=== PATIENT | female | born 1985 | race Caucasian/White ===

== ENCOUNTER → 2021-08-04 | Outpatient (CLI) | payer OTHER | LOC: ORTHO 13:53 | PROVIDERS: ATTEND Orthopaedic Surgery | DX: S83.241A Other tear of medial meniscus, current injury, right knee, initial encounter (principal); X58.XXXA Exposure to other specified factors, initial encounter | CPT/HCPCS: 99203 ==

== ENCOUNTER 2021-08-10 05:33 | Outpatient (CLI) | payer OTHER ==
[~2021-08-10] VITALS: Ht 154.9 cm; Wt 81.0 kg
[2021-08-12] MEDS ORDERED: GABA-486 PO (13:41)
[2021-08-12] MEDS ORDERED: CYAN100088 PO (13:41)
[2021-08-12] MEDS ORDERED: FLUT15.845 NS (13:41)
[2021-08-12] MEDS ORDERED: LORA10TA7 PO (13:41)
[2021-08-12] MEDS ORDERED: SUMA50TA2 PO (13:41)
[2021-08-12] MEDS ORDERED: TURM538C PO (13:41)
[2021-08-12] MEDS ORDERED: BUPR-168 PO (13:41)
[2021-08-12] MEDS ORDERED: MECO10005 PO (13:41)
[2021-08-12] MEDS ORDERED: PANT20TA18 PO (13:41)
[2021-08-12] MEDS ORDERED: ALPR0.5T7 PO (13:41)
[2021-08-12] MEDS ORDERED: FOLI-74 PO (13:41)
[2021-08-12] MEDS ORDERED: VENL75TA2 PO (13:41)
[2021-08-12] MEDS ORDERED: TRAZ-227 PO (13:41)
== END 2021-08-12 13:53 | disposition home or self-care (01) ==
LOC: PREOP 05:33
PROVIDERS: ATTEND Orthopaedic Surgery
DX: Z01.818 Encounter for other preprocedural examination (principal)

== ENCOUNTER 2021-08-17 06:13 | Day surgery (SDC) | payer OTHER ==
[2021-08-17] VITALS (8 sets, daily range): BP systolic 84–132; BP diastolic 50–81
[~2021-08-17] VITALS: Ht 154.9 cm; Wt 81.0 kg
[~2021-08-17 06:13] MED LIST: ALPR0.5T7 PO; BUPR-168 PO; CYAN100088 PO; FLUT15.845 NS; FOLI-74 PO; GABA-486 PO; LORA10TA7 PO; MECO10005 PO; PANT20TA18 PO; SUMA50TA2 PO; TRAZ-227 PO; TURM538C PO; VENL75TA2 PO
[2021-08-17] MEDS ORDERED: LACTATED RINGERS 1,000 ML IV PRN (06:30)
[2021-08-17] MEDS ORDERED: ceFAZolin 2 GM IV Premixed 50 ML IV ONE (06:30)
[2021-08-17] MEDS ORDERED: MIDAZOLAM 2 MG/2 ML (VERSED) VIAL ONE (07:29)
[2021-08-17] MEDS ORDERED: fentaNYL INJ 100 MCG/2 ML AMP ONE (07:29)
[2021-08-17] MEDS ORDERED: BUP/EPI 0.5% 1:200,000 (SENSORCAINE) 30 ML VIAL ONE (07:37)
--- NOTE | 2021-08-17 08:09 | Progress Note-Pre Operative ---
Pre-Operative Progress Note H&P Reviewed The H&P was reviewed, patient examined and no changes noted. Date Seen by Provider: August 17, 2021 Time Seen by Provider: 07:55 Date H&P Reviewed: August 17, 2021 Time H&P Reviewed: 07:55 Pre-Operative Diagnosis: Right Knee Medial Meniscus Tear ROBERTA PATEL MD August 17, 2021 08:09
[2021-08-17] MEDS ORDERED: KETOROLAC 30 MG/ML VIAL ONE (08:48)
[2021-08-17] MEDS ORDERED: ONDANSETRON 4 MG/2 ML (SDV) Z0FRAN ONE (08:48)
[2021-08-17] MEDS ORDERED: proPOfol 200 MG/20 ML (DIPRIVAN) VIAL IV ONE (08:48)
[2021-08-17] MEDS ORDERED: SEVOFLURANE (ULTANE) 15 ML INHAL SOLN ONE (08:48)
[2021-08-17] MEDS ORDERED: D5W IV SOLUTION (EXCEL) 0 ML IV ONE (08:48)
[2021-08-17] MEDS ORDERED: LIDOCAINE PF 2% 5 ML (XYLOCAINE) VIAL ONE (08:48)
--- NOTE | 2021-08-17 08:55 | Operative Report - Ortho ---
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 General anesthesia was induced. The left lower extremity was placed in the well leg lyons and the right leg was placed in the arthroscopic lyons. Surgical timeout was taken. The right lower extremity was prepped and draped in the usual sterile fashion. An anterolateral portal was established and a diagnostic knee arthroscopy was performed with the following findings: the patellofemoral portion of the joint demonstrated grade II change, the patella tracked well through the trochlear groove, the gutters were free of loose bodies, the medial meniscus appeared intact, focal grade III change on the medial femoral condyle, ACL was intact, lateral compartment with intact meniscus and articular cartilage. An anteromedial portal was established. Probe was inserted and the medial meniscus was explored, both the articular surface and the under surface. There was no meniscal tear identified. The grade III change on the condyle was probed and found to have loose flaps of articular cartilage. Shaver was inserted and the loose flaps of articular cartilage were debrided to stable borders. Probe was reinserted and confirmed that the chondroplasty was stable. Instruments were withdrawn. Wounds were closed with 3-0 nylon and dressed with xeroform, 4x4s, ABD, cast padding, and YONATAN wrap. Patient tolerated the procedure well and was stable to the recovery room. Anesthesia Type General Estimated Blood Loss minimal Specimen(s) collected/removed None ROBERTA PATEL MD August 17, 2021 08:55
[2021-08-17] MEDS ORDERED: OXC5T PO (08:57)
--- NOTE | 2021-08-17 09:07 | Anesthesia-General Post-Op ---
General Patient Condition Mental Status/LOC: Same as Preop Cardiovascular: Satisfactory Nausea/Vomiting: Absent Respiratory: Satisfactory Pain: Controlled Complications: Absent Post Op Complications Complications None Follow Up Care/Instructions Patient Instructions None needed. Anesthesia/Patient Condition Patient Condition Patient is doing well, no complaints, stable vital signs, no apparent adverse anesthesia problems. No complications reported per nursing. NAVEEN LOPEZ CRNA August 17, 2021 09:06
[2021-08-17] MEDS ORDERED: PROMETHAZINE INJ 25 MG/ML (PHENERGAN) AMP IVP ONE (09:15)
[2021-08-17] MEDS ORDERED: ONDANSETRON 4 MG/2 ML (SDV) Z0FRAN IVP PRN (09:15)
[2021-08-17] MEDS ORDERED: morphine INJ 10 MG/ML 1ML (SYR OR VIAL) IVP ONE (09:15)
== END 2021-08-17 10:25 | disposition home or self-care (01) ==
LOC: SDC 06:13
PROVIDERS: ATTEND Orthopaedic Surgery
DX: M17.11 Unilateral primary osteoarthritis, right knee (principal); M94.8X6 Other specified disorders of cartilage, lower leg; S83.241A Other tear of medial meniscus, current injury, right knee, initial encounter; K21.9 Gastro-esophageal reflux disease without esophagitis; F17.210 Nicotine dependence, cigarettes, uncomplicated; Z79.899 Other long term (current) drug therapy
CPT/HCPCS: 84703; 87081

== ENCOUNTER → 2021-08-28 | Outpatient (CLI) | payer OTHER ==
[~2021-08-28] MED LIST changes: +OXC5T PO
== END ==
LOC: ORTHO 11:00
PROVIDERS: ATTEND Orthopaedic Surgery
DX: Z47.89 Encounter for other orthopedic aftercare (principal); Z98.890 Other specified postprocedural states

== ENCOUNTER → 2021-11-10 | Outpatient (CLI) | payer OTHER | LOC: ORTHO 17:04 | PROVIDERS: ATTEND Orthopaedic Surgery | DX: Z47.89 Encounter for other orthopedic aftercare (principal) ==

== ENCOUNTER → 2021-12-22 | Outpatient (CLI) | payer OTHER | LOC: ORTHO 13:30 | PROVIDERS: ATTEND Orthopaedic Surgery | DX: Z47.89 Encounter for other orthopedic aftercare (principal); Z98.890 Other specified postprocedural states | CPT/HCPCS: 99213 ==